=== PATIENT | female | born 2000 | race African-American/Black ===

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

== ENCOUNTER 2018-12-26 00:21 | Emergency (ER) | payer OTHER ==
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
[2018-12-26 00:29] VITALS: BP 130/74; PULSE 86; TEMP 98.8; BMI 26.6
[2018-12-26] MEDS ORDERED: VANCOMYCIN 1,000 MG in DEXTROSE 5%-WATER - 250 ML IVPB ONE (00:41)
[2018-12-26] MEDS ORDERED: VANCOMYCIN 1,000 MG VIAL (RESTRICTED TO ID ONLY) ONE (00:45)
== END 2018-12-26 02:22 | disposition home or self-care (01) ==
LOC: FER 00:21
DX: S61.252A Open bite of right middle finger without damage to nail, initial encounter (principal); W50.3XXA Accidental bite by another person, initial encounter; Y93.89 Activity, other specified; Y92.89 Other specified places as the place of occurrence of the external cause
CPT/HCPCS: 96365; 99281-25

== ENCOUNTER 2020-07-03 22:11 | Emergency (ER) | payer OTHER ==
[2020-07-03 22:22] VITALS: BP 113/78; PULSE 86; TEMP 99.6; BMI 29.0
[2020-07-03] MEDS ORDERED: ONDANSETRON *ODT* 4 MG TABLET SL ONE (22:33)
[2020-07-03] MEDS ORDERED: ONDANSETRON *ODT* 4 MG TABLET ONE (22:35)
--- NOTE | 2020-07-03 22:38 | PDOC ---
History of Present Illness - General Chief Complaint: Pain Stated Complaint: OVARIAN CYSTS Time Seen by Provider: 07/03/20 22:27 History Source: Patient Exam Limitations: No Limitations - History of Present Illness Initial Comments: 07/03/20 22:38 This is a 20-year-old female who comes in complaining of being concerned that she is going to develop some abdominal pain and nausea secondary to her menses. Patient said her menses is due today. Patient has a history of severe abdominal pain secondary to ovarian cyst during her menses. Patient said that the biggest problem is that she starts vomiting and then is unable to keep down any of the pain medication. Patient has pain medication and is just asking for nausea medication/Zofran. Patient denies any fevers, chills, pain at this time or any other complaints. Allergies: as per nursing notes Past Medical History: none Social history: Lives with family. No smoking. No alcohol. No illicit drugs. Surgical history: None General: No fevers or chills, no weakness, no weight loss HEENT: No change in vision. No sore throat,. No ear pain CardioVascular: no chest discomfort. No shortness of breath Respiratory:No cough, or wheezing. Gastrointestinal: no nausea, vomiting, diarrhea or constipation, No rectal bleeding Genitourinary: No dysuria, hematuria, or frequency Musculoskeletal: No joint or muscle pain or swelling Neurologic: No headache, vertigo, dizziness or loss of consciousness Psychiatric: nor depression Skin: No rashes or easy bruising Endocrine: no increased thirst or abnormal weight change Allergic: no skin or latex allergy All other systems reviewed and normal GENERAL: The patient is awake, alert, and fully oriented, in no acute distress. HEENT:Head is normal with no signs of trauma. Eyes: Pupils equal, round and reactive to light, Ears, and Throat are normal. Neck is supple. No Lymphadenopathy. EXTREMITIES:atraumatic, Normal range of motion, no edema. NEUROLOGICAL: Normal speech, normal gait. PSYCH: Normal mood, normal affect. SKIN: Warm, Dry, normal turgor, no rashes or lesions noted. Assessment and plan: This is a 20-year-old female who was given Zofran prescription and discharged as she had no other complaints other than she was concerned she would develop some nausea with her menses that was due to start her later tonight. Past History - Medical History Allergies/Adverse Reactions: Allergies Allergy/AdvReac Type Severity Reaction Status Date / Time No Known Allergies Allergy Verified 03/03/20 21:02 Home Medications: Ambulatory Orders Ondansetron [Ondansetron Odt] 8 mg PO QID PRN #20 tab.rapdis 07/03/20 Anemia: Yes COPD: No DVT: No Disorders: Yes (OVARIAN CYSTS) Thyroid Disease: (DENIES) - Reproductive History Is Patient Now?: No Polycystic Ovaries: Yes - Immunization History Immunization Up to Date: Yes - Psycho-Social/Smoking History Smoking History: Never smoked Have you smoked in the past 12 months: No *Physical Exam - Vital Signs Last Vital Signs Temp Pulse Resp BP Pulse Ox 99.6 F 86 16 113/78 99 07/03/20 22:15 07/03/20 22:15 07/03/20 22:15 07/03/20 22:15 07/03/20 22:15 Discharge - Discharge Information Problems reviewed: Yes Clinical Impression/Diagnosis: Ovarian cyst Qualifiers: Laterality: unspecified laterality Qualified Code(s): N83.209 - Unspecified ovarian cyst, unspecified side Condition: Stable Disposition: HOME - Admission No - Additional Discharge Information Prescriptions: Ondansetron [Ondansetron Odt] 8 mg PO QID PRN #20 tab.rapdis PRN Reason: Nausea - Follow up/Referral - Patient Discharge Instructions Additional Instructions: 1 tablet as often as every 6 to 8 hours let it dissolve under your tongue as needed for nausea. Take ibuprofen or Aleve for the pain. Return to the emergency department immediately with ANY new, persistent or worsening symptoms. Continue any medications as previously prescribed by your physician. You should follow up with your primary doctor as soon as possible regarding today's emergency department visit. . Please make sure your doctor reviews the results of your emergency evaluation. Thank you for coming to the Emergency Department today for your care. It was a pleasure to see you today. Please note that your evaluation is INCOMPLETE until you follow-up with your doctor. - Post Discharge Activity
--- OUTSIDE RECORDS SUMMARY | 2020-07-04 04:36 | XMS ---
:2000 Author Organization [facility] Support Name Relationship Address Phone NORRIS Unavailable Unavailable Unavailable JEFFY LANDRY MOTHER [address] [place] [address] JEFFY LANDRY [address] [place] [address] Re-disclosure Warning The records that you are about to access may contain information from federally- assisted alcohol or drug abuse programs. If such information is present, then the following federally mandated warning applies: This information has been disclosed to you from records protected by federal confidentiality rules (42 CFR part 2). The federal rules prohibit you from making any further disclosure of this information unless further disclosure is expressly permitted by the written consent of the person to whom it pertains or as otherwise permitted by 42 CFR part 2. A general authorization for the release of medical or other information is NOT sufficient for this purpose. The Federal rules restrict any use of the information to criminally investigate or prosecute any alcohol or drug abuse patient.The records that you are about to access may contain highly sensitive health information, the redisclosure of which is protected by Article 27-F of the [facility] Public Health law. If you continue you may haveaccess to information: Regarding HIV / AIDS; Provided by facilities licensed or operated by the [facility] Office of Mental Health; or Provided by the [facility] Office for People With Developmental Disabilities. If such information is present, then the following [facility] mandated warning applies: This information has been disclosed to you from confidential records which are protected by state law. State law prohibits you from making any further disclosure of this information without the specific written consent of the person to whom it pertains, or as otherwise permitted by law. Any unauthorized further disclosure in violation of state law may result in a fine or longterm sentence or both. A general authorization for the release of medical or other information is NOT sufficient authorization for further disclosure. Insurance Providers Payer name Policy type Policy ID Covered Covered libertarian's Policy P gregorio / Coverage libertarian ID relationship to [employer] ormation type [place] [id number] 000 HEALTH NON CAP SELF PAY SP INSURANCE [place] [id number] HEALTH NON [place] [id number] HEALTH NON CAP
== END 2020-07-03 22:40 | disposition home or self-care (01) ==
LOC: FER 22:11
DX: N83.209 Unspecified ovarian cyst, unspecified side (principal)
CPT/HCPCS: 99283-25; Q0162

== ENCOUNTER 2020-09-20 21:00 | Emergency (ER) | payer OTHER ==
[2020-09-20 21:16] VITALS: BP 111/66; PULSE 72; TEMP 98.9; BMI 29.0
== END 2020-09-20 22:57 | disposition home or self-care (01) ==
LOC: FER 21:00 → SUPCPDRO 21:00 → FER 22:57
DX: S83.91XA Sprain of unspecified site of right knee, initial encounter (principal); S83.004A Unspecified dislocation of right patella, initial encounter
CPT/HCPCS: 73560-TC-RT-FY; 99283-25

== ENCOUNTER 2024-01-15 18:20 | Emergency (ER) | payer OTHER ==
[2024-01-15 18:26] VITALS: BP 119/73; PULSE 80; RESP 18; TEMP 97.8; BMI 29.1
== END 2024-01-15 20:21 | disposition home or self-care (01) ==
LOC: JER 18:20 → JERFT 18:20
DX: H00.016 Hordeolum externum left eye, unspecified eyelid (principal); M27.2 Inflammatory conditions of jaws
CPT/HCPCS: 70486-TC; 84703; 99284-25